=== PATIENT | male | born 1980 | race Hispanic/Latino ===

== ENCOUNTER 2017-12-21 05:27 | Emergency (ER) | payer OTHER ==
[2017-12-21] MEDS ORDERED: LIDOCAINE 1% W/EPI 1:100,000 MDV 50 ML VIAL ONE (05:28)
[2017-12-21] MEDS ORDERED: CEFAZOLIN SODIUM 1 GM/VIAL ONE (05:48)
[2017-12-21] MEDS ORDERED: NA CHLORIDE 0.9% 100 ML IV ONE (05:48)
[2017-12-21] MEDS ORDERED: NA CHLORIDE 0.9% 1,000 ML ONE (05:56)
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
== END 2017-12-21 06:50 | disposition home or self-care (01) ==
LOC: ER 05:27
PROC: 0JQH0ZZ Repair Left Lower Arm Subcutaneous Tissue and Fascia, Open Approach (ICD-10-PCS; principal; 2017-12-21)
DX: S51.812A Laceration without foreign body of left forearm, initial encounter (principal); E11.9 Type 2 diabetes mellitus without complications; F17.210 Nicotine dependence, cigarettes, uncomplicated; W29.8XXA Contact with other powered hand tools and household machinery, initial encounter; Y93.89 Activity, other specified; Y92.89 Other specified places as the place of occurrence of the external cause; Y99.8 Other external cause status; Z23 Encounter for immunization
CPT/HCPCS: 96365; 99284; J0690; J7030